=== PATIENT | female | born 1985 | race Caucasian/White ===

== ENCOUNTER 2021-01-19 09:17 | Outpatient (REF) | payer MEDICAID, SELFPAY | END 2021-01-19 09:18 | disposition home or self-care (01) | LOC: HO.LAB 09:17 | PROVIDERS: Visit Provider Internal Medicine | DX: Z20.822 Contact with and (suspected) exposure to COVID-19 (principal) | CPT/HCPCS: C9803; U0003; U0005 ==

== ENCOUNTER 2021-11-05 12:34 | Emergency (ER) | payer MEDICAID, SELFPAY ==
[2021-11-05 13:17] VITALS: BP 144/107; PULSE 82; RESP 18; TEMP 36.9; O2SAT 97; BMI 22.3
[2021-11-05] MEDS: Lidocaine HCl 1 % MPF 5 ML VIAL SUBCUT (15:14)
--- NOTE | 2021-11-05 16:05 | ED.SKABFB ---
HPI - Skin/Abscess/Foreign Bdy General Chief complaint: Skin/Abscess/Foreign Body Stated complaint: Cyst burst on head Time Seen by Provider: 11/05/21 14:52 Source: patient Mode of arrival: ambulatory History of Present Illness HPI narrative: 36-year-old female with past medical history of sebaceous cysts presenting to the ED complaining of cyst on frontal scalp which popped and started draining x a couple days. Admits has had cyst times many months. States area became painful and then noted the discharge. Denies erythema, fever, chills complaint: abscess/boil Onset (ago): day(s) Related Data Previous Rx's Medication Instructions Recorded cephalexin 500 mg capsule 500 mg PO QID 7 days #28 caps 11/05/21 Allergies Allergy/AdvReac Type Severity Reaction Status Date / Time morphine [MORPHINE] Allergy Unknown ELEVATED Verified 11/05/21 14:57 BP AND RASH bee pollen [bee stings] Allergy Anaphylaxis Verified 11/05/21 14:58 bee venom protein (honey bee) Allergy Anaphylaxis Verified 11/05/21 14:58 Review of Systems Review of Systems: Constitutional: No Weight loss, No Fever, No Chills ENT/Mouth: No Ear Pain, No Nasal Congestion, No Sinus Pain, No sore throat, No Rhinorrhea, No Swallowing Difficulty Cardiovascular: No Chest Pain, No SOB Respiratory: No Cough, No Sputum, No Wheezing Gastrointestinal: No Nausea, No Vomiting, No Diarrhea, No Constipation, No Abdominal pain Genitourinary: No Dysuria, No Urinary Frequency, No Flank Pain Musculoskeletal: No joint pain, No Myalgias, No Joint Swelling Skin: + Skin Lesions, No rash Neuro: No Weakness, No Numbness, No Paresthesias Yes all other systems are reviewed and are negative [facility] Past Medical History Attestation statement: The following information was validated with the patient. Social History Social History Advance Directives: No Advance Directives Information Provided: No Physical Exam Vital Signs: Vital Signs: Last Vital Signs Temp 98.5 F 11/05/21 13:17 Pulse 82 11/05/21 13:17 Resp 18 11/05/21 13:17 BP 135/87 11/05/21 16:21 Pulse Ox 97 11/05/21 13:17 O2 Del Method 11/05/21 13:17 BMI result Body Mass Index 22.3 Const: General: cooperative, healthy appearing and no acute distress Orientation/consciousness: patient oriented x3 Limitations: no limitations HEENT: Other: + sebaceous cyst to frontal scalp that is open and draining. No overlying erythema, no warmth, no induration Head: Yes normal to inspection and Yes atraumatic Ears: hearing grossly normal bilaterally General nose exam: Normal external nose present Face and sinus: Yes normal facial exam Eyes: General: appearance normal, both eyes and all related structures EOM: EOMs intact bilaterally Neck: Neck: Yes normal visual inspection and Yes no meningeal signs Resp: Effort & Inspection: normal respiratory effort and no respiratory distress Cardio: Rate: regular rate Heart sounds: S1 normal heart sound present and S2 normal heart sound present Skin: Rashes: no rashes Wounds: no wounds Neuro: General: patient oriented x3, tone normal and no meningeal signs Gait exam (Neuro): Normal gait present Extrem: General: Yes normal to inspection Course Course Course Narrative: Minimal amount of drainage expressed from cyst, unable to dislodge entire cyst wall. Minimal bleeding MDM - Skin/Abscess/Foreign Bdy MDM Narrative Medical decision making narrative: 36-year-old female with past medical history of sebaceous cysts presenting to the ED complaining of cyst on frontal scalp which popped and started draining x a couple days. On exam hypertensive, draining sebaceous cyst noted to frontal scalp is without overlying cellulitis or infection. Will I & D Differential Diagnosis Differential diagnosis: Likely abscess of skin or subcutaneous tissue Medical Records Attestation: I reviewed the patient's medical records. Lab Data Attestation: I reviewed the patient's lab results. Procedures Abscess I/D Site: scalp Local Anesthetic: lidocaine 1% Amount of anesthesia used (mL): 2 Technique: incised with blade Complications: pain Discharge Plan Discharge Clinical Impression: Sebaceous cyst Patient Disposition: Home, Self-Care Instructions: Cyst (ED) Additional Instructions: Your cyst was drained today in the emergency department, we were unable to get the whole cyst wall dislodged. If you need to follow-up with Dermatology. Please start taking Keflex which is an antibiotic If there is growing, turns red, has pus drainage or you have fever please return to the ED Prescriptions: New cephalexin 500 mg capsule 500 mg PO QID 7 Days Qty: 28 0RF Referrals: Deborah Lemus PA [Physician Expediter Clerk] - Rj Valente MD [Physician] - Isidro Grossman MD [Physician] - Interventions: ED Discharge Assessment Last Done: 11/05/21 16:28 Discharge Date/Time: 11/05/21 16:30
[2021-11-05 16:21] VITALS: BP 135/87
== END 2021-11-05 16:30 | disposition home or self-care (01) ==
PROVIDERS: Emergency Provider Emergency Medicine
DX: L02.811 Cutaneous abscess of head [any part, except face] (principal); Z79.899 Other long term (current) drug therapy
CPT/HCPCS: 10060; 99282; 99284

== ENCOUNTER 2022-05-26 09:28 | Emergency (ER) | payer MEDICAID, SELFPAY ==
--- NOTE | ~2022-05-26 | CT_ITS ---
Indication: Headache, eye bruising EXAMINATION: CT brain, CT facial bones. This CT examination was performed using dose optimization techniques as appropriate, variously including the following: *Automated exposure control *Adjustment of mA and/or kV according to patient size (this includes techniques or standardized protocols for targeted exams where dose is matched to indication/reason for exam; i.e. extremities or head) *Use of iterative reconstruction technique. Radiation dose [address] brain; There is no midline shift. There is no mass effect. There is no hemorrhage. The basal cisterns appear patent. The posterior fossa is grossly within normal limits. No extra-axial collection. Perez-white matter is fairly well-preserved. The ventricular system is within normal limits. Note is made of a soft tissue lesion I in the frontal region to the right of midline with associated minimal calcification. Etiology isn't determined. At this level on the left soft tissue induration of the subcutaneous fat of uncertain etiology. Another small partially calcified lesion adjacent to the left parietal calvarium. Review of the bone windows does not show evidence for fracture. CT facial bones; Note is made of sinus disease in the frontal sinuses, ethmoid sinuses, maxillary sinuses and minimal in the sphenoid sinuses. Mucous retention cyst or polyp likely associated with the right maxillary sinus measures 1.6 cm. Deviation of the nasal septum to the right. Lucency in the maxillary spine. A fracture would need to be considered here. CT/CT facial bones wo IV con IMPRESSION: Negative acute noncontrast CT of the brain. Some soft tissue lesions are noted. Correlation recommended clinically. Lucency involving the maxillary spine. Fracture would need to be considered here in the setting of trauma. Otherwise sinus disease is noted.
[2022-05-26 09:47] VITALS: BP 174/103; PULSE 75; RESP 18; TEMP 36.8; O2SAT 99; BMI 21.4
[2022-05-26 10:02] VITALS: BP 175/109; PULSE 74; RESP 16; TEMP 36.9; O2SAT 100
--- NOTE | 2022-05-26 10:19 | PC.NURSE ---
pt AOx3, pt denies trauma to eyes, ecchymosis area noted to bilateral eyes. pupils are PERRLA. pt is hypertensive, denies taking hypertensive medication. Reports 8/10 headache.
[2022-05-26 10:58] LABS: MANUAL DIFF FLAG NO
[2022-05-26] MEDS: ondansetron HCL 4 MG/2 ML VIAL IVPUSH (11:00)
[2022-05-26] MEDS: Acetaminophen 325 MG TABLET 975 MG PO (11:00)
[2022-05-26] MEDS: 0.9 % Sodium Chloride 1,000 ML 999 ML IVCONT (11:00)
[2022-05-26 11:05] LABS: Basophils Absolute Auto 0.1 X10*3/uL (0.0-0.2); Basophils Percent Auto 1.3 % (0-2); Eosinophils Absolute Auto 0.2 X10*3/uL (0.0-0.4); Eosinophils Percent Auto 3.1 % (0-4); Hematocrit 40.1 % (37.0-47.0); Imm Gran Abs Auto 0.02 X10*3/uL (0.00-0.03); Imm Gran Pct Auto 0.3 % (0.0-0.4); Lymphocytes Absolute Auto 1.8 X10*3/uL (1.2-4.9); Lymphocytes Percent Auto 28.8 % (20-40); Mean Corpuscular HGB Conc 34.9 g/dl (31.0-35.0); Mean Corpuscular Hemoglobin 31.3 pg (27.0-33.0); Mean Corpuscular Volume 89.7 fL (80.0-98.0); Mean Platelet Volume 10.8 fL (9.4-12.3); Monocytes Absolute Auto 0.4 X10*3/uL (0.1-1.2); Monocytes Percent Auto 6.4 % (2-11); Neutrophils Absolute Auto 3.8 x10*3/uL (2.0-8.3); Neutrophils Percent Auto 60.1 % (45-73); Platelet Count 316 X10*3/uL (160-400); Red Blood Count 4.47 X10*6/uL (4.20-5.50); Red Cell Distribution Width 13.1 % (11.0-16.0); White Blood Count 6.4 X10*3/uL (4.8-10.8)
--- NOTE | 2022-05-26 11:05 | PC.NURSE ---
pt AOx3, iv inserted. pt medicated per order. awaiting CT scan
[2022-05-26 11:06] LABS: INTERNATIONAL NORM RATIO 0.9 (0.9-1.1)
[2022-05-26 11:23] LABS: Alanine Aminotransferase 11 U/L (0-31); Albumin Level 4.3 g/dL (3.5-5.0); Alkaline Phosphatase 53 U/L (39-117); Anion Gap 13 (12-20); Aspartate Amino Transferase 14 U/L (5-31); Bilirubin Total 0.4 mg/dL (0.0-1.0); Blood Urea Nitrogen 8 mg/dL (9-16); C Reactive Protein < 0.10 mg/dL (< or = 0.50); Calcium 9.4 mg/dL (8.4-10.2); Carbon Dioxide 21 mmol/L (22-29); Chloride 112 mmol/L (96-108); Creatinine Clr Calc Pharmacy 101.3; Estimated Glomerular Filt Rate > 60; Glucose Random 84 mg/dL (60-115); Magnesium 2.2 mg/dL (1.6-2.6); Potassium 4.3 mmol/L (3.3-5.1); Sodium 142 mmol/L (135-145); Total Protein 6.8 g/dL (6.5-8.0)
[2022-05-26 11:45] LABS: Erythrocyte Sedimentation Rate 4 MM/HR (0-20)
--- NOTE | 2022-05-26 12:06 | ECG_ITS ---
Test Reason : CHEST PAIN Blood Pressure : / mmHG Vent. Rate : 072 BPM Atrial Rate : 072 BPM P-R Int : 138 ms QRS Dur : 076 ms QT Int : 406 ms P-R-T Axes : 042 079 072 degrees QTc Int : 444 ms Normal sinus rhythm Normal ECG When compared to the previous EKG of Nonspecific T waves in the precordial leads not present Referred By: Bree Harry Electronically Signed By:Guevara Martines
--- NOTE | 2022-05-26 12:11 | PC.NURSE ---
pt continues to c/o pain 7-12/02, pt also now complaining of left lower chest pain, provider notified, will perform an ekg.
--- NOTE | 2022-05-26 12:36 | PC.NURSE ---
ekg preformed, troponin drawn.
--- NOTE | 2022-05-26 12:47 | MHC.EDTECH ---
EKG done 1221
[2022-05-26 13:06] LABS: Troponin-I High Sensitivity < 3.5 ng/L (<3.5-17.0)
--- NOTE | 2022-05-26 13:37 | ED.HA ---
HPI - Headache General Chief Complaint: Skin/Abscess/Foreign Body Stated Complaint: Headache/Black eye no inj Time Seen by Provider: 05/26/22 09:59 Source: patient and family Mode of arrival: ambulatory Limitations: no limitations History of Present Illness HPI Narrative: 36-year-old female with a past medical history of headaches presenting to the ER with complaints of a persistent pressure-like headache to the frontal aspect of her head for the past few days. Also reports that she woke up yesterday with a bruise under her right eye. She reports that she did not have any trauma or head injury or any falls related to sustain this bruise. She also reports and anterior chest pain that she feels tight in sensation that has been intermittent over the past month. She denies being on any blood thinners. She denies any fevers, change in vision, vomiting, ear pain, nasal congestion/rhinorrhea, dizziness, CO2 exposure, recent tick bites, sore throat, trouble swallowing or breathing, chest pain or shortness of breath, rashes, nausea/vomiting/diarrhea, abdominal pain, rashes or any other symptoms complaints or concerns at this time. MD elicited complaint: headache Onset (ago): day(s) (For the past few days) Onset description: gradually Location: frontal Severity: mild Quality & Timing: constant, pressure and different than previous headaches Exacerbating factors: none Relieving factors: nothing Associated symptoms: other (See above) Treatments prior to arrival: none Related Data Previous Rx's Medication Instructions Recorded cephalexin 500 mg capsule 500 mg PO QID 7 days #28 caps 11/05/21 amoxicillin 875 mg-potassium 1 tab PO BID 7 days #14 tabs 05/26/22 clavulanate 125 mg tablet Allergies Allergy/AdvReac Type Severity Reaction Status Date / Time morphine [MORPHINE] Allergy Unknown ELEVATED Verified 05/26/22 10:08 BP AND RASH bee pollen [bee stings] Allergy Anaphylaxis Verified 05/26/22 10:08 bee venom protein (honey bee) Allergy Anaphylaxis Verified 05/26/22 10:08 Review of Systems Review of Systems: Constitutional : No changes in activity, No lethargy, No recent prior head injury, No agitation, No increased fussiness ENT/Mouth : No Ear Pain, No Nasal discharge/drainage Eyes: No Eye Pain, No Swelling, No Redness, No Foreign Body, No Vision Changes Cardiovascular : + Chest Pain, No SOB Respiratory : No Cough Gastrointestinal : No Nausea, No Vomiting, No abdominal Pain Genitourinary : No Dysuria, No Urinary Frequency, No Urinary Incontinence, No Urgency, No Flank Pain Musculoskeletal : No joint pain, No neck stiffness, No back pain/injury Skin : + ecchymosis to right periorbital area, No lacerations Neuro : No unsteady gait, No Paresthesias, No Loss of Consciousness, No altered mental status, No dizziness, + Headache Denies past medical history of HIV, recent trauma, coagulopathy, recent spinal/ epidural procedure, new medication, URI symptoms, close contacts with similar symptoms, tick bite, or known CO2 exposure. Yes all other systems are reviewed and are negative PMFSH Past Medical History Attestation statement: The following information was validated with the patient. Source: old records reviewed and nursing notes reviewed Social History Social History Alcohol intake: current Alcohol intake frequency: holidays/special occasions only Smoked in Last 30 Days: Yes Use of substances other than those prescribed or required for medical reasons: Yes Substance Use Type: Marijuana Substance Use Frequency: Occasionally Advance Directives: No Advance Directives Information Provided: Yes Patient : No Physical Exam Vital Signs: Vital Signs: Last Vital Signs Temp 98.5 F 05/26/22 10:02 Pulse 74 05/26/22 10:02 Resp 16 05/26/22 10:02 BP 175/109 H 05/26/22 10:02 Pulse Ox 100 05/26/22 10:02 O2 Del Method 05/26/22 10:02 BMI result Body Mass Index 21.4 Vital signs have been reviewed as normal and appeared to be correct. Blood pressure 174/103. Heart rate normal. Respiration rate normal. Temperature normal. Oxygen saturation normal. Appearance: Alert. Oriented X3. No acute distress. Head: Normal external exam. Normocephalic. Atraumatic. Able to rotate head bilaterally. No Louis signs or raccoon eyes noted. Eyes: PERRLA. EOMI. No nystagmus noted. Conjunctiva and sclera normal. Eyelids normal. Corneal reflex normal. To right periorbital lower aspect patient has ecchymosis with mild soft tissue swelling. No ecchymosis noted to the rest of the face or swelling. ENT: EAC normal. TM's Normal. No septal hematoma noted. No hemotympanum noted. Hearing normal. Pharynx normal. Uvula midline. tongue midline. Moist mucous membranes. No trismus noted. No drooling noted. No muffled voice noted. Neck: Normal inspection. Neck supple. FROM. No adenopathy. Thyroid Normal. No meningeal signs. No neck mass noted. CVS: Normal heart rate and rhythm. Heart sound normal. No murmurs noted. Pulses normal throughout. Respiratory: No respiratory distress. Painless inspiration. Breath sounds normal. No wheezes/rales/rhonchi noted. Chest nontender. No accessory muscle usage noted or decreased air movement noted. Back: Full range of motion noted. Skin: Skin warm and dry. Normal skin color. Normal skin turgor. No rashes/lesions/lacerations noted. Extremities: Extremities exhibit normal range of motion. Extremities nontender. Able to shrug shoulders bilaterally and keep up against resistance. Neuro: Oriented X 3. No motor deficit. No sensory deficit. Reflexes normal. Moving all extremities. No focal motor deficits. Cranial nerves II-XI intact bilaterally. Facial strength normal. Normal cognition. Speech normal. Gait normal. Strength 5/5 throughout. No pronator drift. No tremor noted. No fasciculations noted. Muscle tone normal throughout. No asterixis noted. [id number]-[id number] test normal. Heel to casas test normal. Tandem gait normal. Does not sway with eyes open. Romberg test negative. Rapid alternating movement upper extremity normal. Rapid alternating movement lower extremity normal. Hand drop from overhead-Mrs. face. No rigidity noted. NIHSS score 0. Course Course Course Narrative: - Patient afebrile, resting comfortably in no distress. Non-toxic appearing. Patient denies any recent trauma/injury to head. Neurological exam shows no deficits. BP WNL. Denies any changes in vision. Patient ambulates without difficulty. Given the history, and physical - most likely diagnosis: Migraine QUINTANILLA. Although due to patient reporting that this is longer than her usual headaches and her right eye bruising that is atraumatic will obtain CT scan of brain to evaluate for any acute processes. Will treat pain, and nausea. Will d/c with migraine medicaiton and advised to follow - up with PCP. Patient demonstrated good understanding of signs and symptoms to return to ED for further testing should sx worsen. gradual onset QUINTANILLA with nausea. Pt states classic of previous migraine HAs. SAH: unlikely given gradual onset and similar to previous episodes Intracranial bleed: unlikely given neg trauma, neg anticoagulation Meningitis: unlikely given pt afebrile, neg stiff neck, no immune compromise. Exam without signs of meningismus Temporal arteritis: Unlikely given Neg jaw claudication, no temporal tenderness or nodularity on exam. Cerebral venous thrombosis: unlikely given no h/o hypercoaguable state, no chronic head/neck infection. Reevaluation(s) Reevaluation #1: Labs obtained and all labs within normal limits. CT scan of brain negative for any acute processes. Although some soft tissue lesions are noted. She is also noted to have lucency involving the maxillary spine fracture would need to be considered in setting of trauma otherwise sinus disease noted. Although patient continues to deny any trauma. Therefore I printed out the results and handed to the patient explained to her that she will need to follow-up with her PCP regarding the lesions noted in her soft tissue areas that she would need further evaluation treatment regarding this with her PCP. Otherwise at this time patient can be discharged with instructions to follow-up with PCP due to she is also noted to have an elevated blood pressure although reports she has never been diagnosed with high blood pressure. Will not start her on blood pressure medication today as she reports she is also anxious and in pain therefore this could be related to that. I did give her Zofran along with Tylenol which provided some symptomatic relief for her headache. Will DC home with symptomatic treatment instructions return if any new or worsening symptoms. Patient understands agrees with this plan. Time: 13:48 Medications Administered Discontinued Medications Generic Name Dose Route Start Last Admin Trade Name Miguel PRN Reason Stop Dose Admin Acetaminophen 975 mg 05/26/22 10:39 05/26/22 11:00 Acetaminophen 325 Mg Tablet PO 05/26/22 10:40 975 mg ONCE ONE Administration Sodium Chloride 1,000 mls @ 999 mls/hr 05/26/22 10:45 05/26/22 12:35 Ns IVCONT 05/26/22 11:45 Infused .Q1H1M CHARISSA Infusion Ondansetron HCl 4 mg 05/26/22 10:39 05/26/22 11:00 Ondansetron Hcl 4 Mg/2 Ml Vial IVPUSH 05/26/22 10:40 4 mg ONCE ONE Administration Medical Decision Making Lab Data [facility] Lab Attestation statement: I reviewed the patient's lab results. 05/26/22 10:53 05/26/22 10:53 Labs: Lab Results 05/26/22 05/26/22 05/26/22 Range/Units 10:53 10:53 10:53 WBC 6.4 (4.8-10.8) X10*3/uL RBC 4.47 (4.20-5.50) X10*6/uL Hgb 14.0 (12.0-16.0) g/dl Hct 40.1 (37.0-47.0) % MCV 89.7 (80.0-98.0) fL MCH 31.3 (27.0-33.0) pg MCHC 34.9 (31.0-35.0) g/dl RDW 13.1 (11.0-16.0) % Plt Count 316 (160-400) X10*3/uL MPV 10.8 (9.4-12.3) fL Immature Gran % (Auto) 0.3 (0.0-0.4) % Neut % (Auto) 60.1 (45-73) % Lymph % (Auto) 28.8 (20-40) % Rooks % (Auto) 6.4 (2-11) % Eos % (Auto) 3.1 (0-4) % Baso % (Auto) 1.3 (0-2) % Lymph # (Auto) 1.8 (1.2-4.9) X10*3/uL Rooks # (Auto) 0.4 (0.1-1.2) X10*3/uL Eos # (Auto) 0.2 (0.0-0.4) X10*3/uL Baso # (Auto) 0.1 (0.0-0.2) X10*3/uL Abs Immat Gran (auto) 0.02 (0.00-0.03) X10*3/uL Absolute Neuts (auto) 3.8 (2.0-8.3) x10*3/uL Absolute Nucleated RBC 0.000 (0.0-0.012) X10*3/uL Nucleated RBC % (auto) 0.0 (0.0-0.2) /100WBC ESR 4 (0-20) MM/HR PT 10.0 (10.0-13.1) SEC INR 0.9 (0.9-1.1) Sodium (135-145) mmol/L Potassium (3.3-5.1) mmol/L Chloride (96-108) mmol/L Carbon Dioxide (22-29) mmol/L Anion Gap (12-20) BUN (9-16) mg/dL Creatinine (0.5-1.4) mg/dL Estim Creat Clear Calc Estimated GFR Random Glucose (60-115) mg/dL Calcium (8.4-10.2) mg/dL Magnesium (1.6-2.6) mg/dL Total Bilirubin (0.0-1.0) mg/dL AST (5-31) U/L ALT (0-31) U/L Alkaline Phosphatase (39-117) U/L Troponin I High Sens (<3.5-17.0) ng/L C-Reactive Protein (< or = 0.50) mg/dL Total Protein (6.5-8.0) g/dL Albumin (3.5-5.0) g/dL 05/26/22 05/26/22 Range/Units 10:53 12:35 WBC (4.8-10.8) X10*3/uL RBC (4.20-5.50) X10*6/uL Hgb (12.0-16.0) g/dl Hct (37.0-47.0) % MCV (80.0-98.0) fL MCH (27.0-33.0) pg MCHC (31.0-35.0) g/dl RDW (11.0-16.0) % Plt Count (160-400) X10*3/uL MPV (9.4-12.3) fL Immature Gran % (Auto) (0.0-0.4) % Neut % (Auto) (45-73) % Lymph % (Auto) (20-40) % Rooks % (Auto) (2-11) % Eos % (Auto) (0-4) % Baso % (Auto) (0-2) % Lymph # (Auto) (1.2-4.9) X10*3/uL Rooks # (Auto) (0.1-1.2) X10*3/uL Eos # (Auto) (0.0-0.4) X10*3/uL Baso # (Auto) (0.0-0.2) X10*3/uL Abs Immat Gran (auto) (0.00-0.03) X10*3/uL Absolute Neuts (auto) (2.0-8.3) x10*3/uL Absolute Nucleated RBC (0.0-0.012) X10*3/uL Nucleated RBC % (auto) (0.0-0.2) /100WBC ESR (0-20) MM/HR PT (10.0-13.1) SEC INR (0.9-1.1) Sodium 142 (135-145) mmol/L Potassium 4.3 (3.3-5.1) mmol/L Chloride 112 H (96-108) mmol/L Carbon Dioxide 21 L (22-29) mmol/L Anion Gap 13 (12-20) BUN 8 L (9-16) mg/dL Creatinine 0.65 (0.5-1.4) mg/dL Estim Creat Clear Calc 101.3 Estimated GFR > 60 Random Glucose 84 (60-115) mg/dL Calcium 9.4 (8.4-10.2) mg/dL Magnesium 2.2 (1.6-2.6) mg/dL Total Bilirubin 0.4 (0.0-1.0) mg/dL AST 14 (5-31) U/L ALT 11 (0-31) U/L Alkaline Phosphatase 53 (39-117) U/L Troponin I High Sens < 3.5 (<3.5-17.0) ng/L C-Reactive Protein < 0.10 (< or = 0.50) mg/dL Total Protein 6.8 (6.5-8.0) g/dL Albumin 4.3 (3.5-5.0) g/dL Independent Interpretation I performed an independent interpretation of an: EKG (Normal sinus rhythm with ventricular rate of 72 with a normal MO interval normal QRS duration normal QT/QTC interval. No acute ischemic change are noted. Similar compared to prior EKG.) and CT Scan Interpretation: CT brain; There is no midline shift. There is no mass effect. There is no hemorrhage. The basal cisterns appear patent. The posterior fossa is grossly within normal limits. No extra-axial collection. Perez-white matter is fairly well-preserved. The ventricular system is within normal limits. Note is made of a soft tissue lesion I in the frontal region to the right of midline with associated minimal calcification. Etiology isn't determined. At this level on the left soft tissue induration of the subcutaneous fat of uncertain etiology. Another small partially calcified lesion adjacent to the left parietal calvarium. Review of the bone windows does not show evidence for fracture. CT facial bones; Note is made of sinus disease in the frontal sinuses, ethmoid sinuses, maxillary sinuses and minimal in the sphenoid sinuses. Mucous retention cyst or polyp likely associated with the right maxillary sinus measures 1.6 cm. Deviation of the nasal septum to the right. Lucency in the maxillary spine. A fracture would need to be considered here. CT/CT head/brain wo IV con IMPRESSION: Negative acute noncontrast CT of the brain. Some soft tissue lesions are noted. Correlation recommended clinically. ? Lucency involving the maxillary spine. Fracture would need to be considered here in the setting of trauma. ? Otherwise sinus disease is noted. Radiology Impression Discussion of test interpretation with radiology: I have reviewed the radiologist's reading. Independent Historian Clinical information obtained from an independent historian. History obtained from or confirmed by: Other (Daughter at bedside) Discharge Plan Discharge Clinical Impression: Abnormal brain CT, Periorbital ecchymosis of right eye, Generalized headaches, High blood pressure Patient Disposition: Home, Self-Care Instructions: How to Take a Blood Pressure (ED), Hypertension (ED), General Headache (ED) Additional Instructions: You were noted to have a high blood pressure here in the emergency department. You should monitor your blood pressure at least 3 times a week in the morning and write it down on a piece of paper and bring this to her primary care provider so next time you go they can evaluate if you need blood pressure medication. Your CT scan showed some soft tissue lesions that the etiology are indeterminate. Therefore your primary care provider should do further evaluation treatment regarding this. Return if any new or worsening symptoms. Follow up with her doctor this week. Prescriptions: New amoxicillin-pot clavulanate 875-125 mg tablet 1 tab PO BID 7 Days Qty: 14 0RF No Action cephalexin 500 mg capsule 500 mg PO QID 7 Days Qty: 28 0RF Referrals: Physician,Unknown J [Primary Care Provider] - (your pcp within 1 week )
== END 2022-05-26 13:55 | disposition home or self-care (01) ==
PROVIDERS: Physician Assistant Medical; Emergency Provider Student in an Organized Health Care Education/Training Program
DX: S00.11XA Contusion of right eyelid and periocular area, initial encounter (principal); R51.9 Headache, unspecified; M54.50 Low back pain, unspecified; I10 Essential (primary) hypertension; X58.XXXA Exposure to other specified factors, initial encounter; Y93.9 Activity, unspecified; Y92.9 Unspecified place or not applicable; Y99.9 Unspecified external cause status; Z79.899 Other long term (current) drug therapy
CPT/HCPCS: 36415; 70450; 70486; 80053; 83735; 84484; 85025; 85610; 85652; 86140; 93005; 96361; 96374; 99284; 99285; J2405

== ENCOUNTER 2023-01-05 12:44 | Emergency (ER) | payer OTHER, SELFPAY ==
[2023-01-05 13:10] VITALS: BP 136/93; PULSE 78; RESP 19; TEMP 36.6; O2SAT 98; BMI 25.3
--- NOTE | 2023-01-05 13:15 | ED.GENADULT ---
HPI - General Adult General Chief complaint: Ear Problems Stated complaint: Bleeding Out Of L Ear Time Seen by Provider: 01/05/23 13:14 Source: patient, RN notes reviewed and old records reviewed Mode of arrival: ambulatory Limitations: no limitations History of Present Illness HPI narrative: 37-year-old female presents for evaluation of bleeding from her left ear She reports yesterday she felt some pressure in her left ear and minor discomfort She denies taking anything in the left ear but today had some bleeding on the left ear She called her doctor who referred to the ER Denies any fevers, chills Related Data Previous Rx's Medication Instructions Recorded cephalexin 500 mg capsule 500 mg PO QID 7 days #28 caps 11/05/21 amoxicillin 875 mg-potassium 1 tab PO BID 7 days #14 tabs 05/26/22 clavulanate 125 mg tablet amoxicillin 500 mg tablet 500 mg PO TID #21 tabs 01/05/23 Allergies Allergy/AdvReac Type Severity Reaction Status Date / Time morphine [MORPHINE] Allergy Unknown ELEVATED Verified 01/05/23 13:10 BP AND RASH bee pollen [bee stings] Allergy Anaphylaxis Verified 01/05/23 13:10 bee venom protein (honey bee) Allergy Anaphylaxis Verified 01/05/23 13:10 Review of Systems Constitutional: Constitutional: Denies chills and Denies fever(s) ENT: Reports ear discharge (Bloody) and Reports otalgia PMFSH Social History Social History Alcohol intake: current Alcohol intake frequency: holidays/special occasions only Substance Use Type: Marijuana Physical Exam ED Vital Signs: Vital Signs - 24 hr 01/05/23 13:10 Temperature 98 F Pulse Rate 78 Respiratory Rate 19 Blood Pressure 136/93 H Pulse Oximetry 98 Oxygen Delivery Method Room Air BMI result Body Mass Index 25.3 Const General: healthy appearing, comfortable, no acute distress, alert and awake Nutritional Appearance: well nourished Orientation/consciousness: patient oriented x3 HENMT Other: No left pre or postauricular edema. Head: Yes normocephalic and Yes atraumatic Ears: TM normal on the right and left TM abnormal (Appears to be a small TM perforation at the 5 to 6 o'clock position. ) Eyes Eyelids: Yes eyelids normal Conjunctivae: conjunctivae normal Sclerae: sclerae normal Corneas: corneas normal Pupils: Equal, round and reactive pupils present EOM: EOMs intact bilaterally Neck Neck: Yes full ROM Resp Effort & Inspection: normal respiratory effort, able to speak in complete sentences and not labored Skin General skin exam: elasticity normal Neuro General: patient oriented x3 Cranial nerves: Yes Equal, round and reactive pupils present and Yes Bilaterally intact EOM present Cognition (Neuro): normal cognition Extrem Other: Moving all extremities well without any obvious deformities Medical Decision Making Medical Decision Making MDM Narrative: Patient appears to have a minor tympanic membrane rupture. Patient will be started on amoxicillin for prophylaxis, as it here does not appear acutely infected. She will be referred to outpatient ENT for follow-up. She is encouraged not to stick anything in her ear Differential Diagnosis Differential Diagnoses: The differential diagnosis associated with the presentation includes TM rupture Otitis media Otitis externa Mastoiditis Discharge Plan Discharge Clinical Impression: Tympanic membrane perforation Patient Disposition: Home, Self-Care Instructions: Ruptured Eardrum (ED) Additional Instructions: It appears you have a small perforation to the bottom of your eardrum. Take amoxicillin 3 times daily for the next 7 days Follow-up with your nose and throat specialist, you may call Dr. Luke Do not stick anything in your ear including Q-tips Try to keep water out of the ear as well. Prescriptions: New amoxicillin 500 mg tablet 500 mg PO TID Qty: 21 0RF No Action cephalexin 500 mg capsule 500 mg PO QID 7 Days Qty: 28 0RF amoxicillin-pot clavulanate 875-125 mg tablet 1 tab PO BID 7 Days Qty: 14 0RF Referrals: Shawn Luke [Physician] - (left tm rupture)
== END 2023-01-05 13:21 | disposition home or self-care (01) ==
PROVIDERS: Emergency Provider Emergency Medicine Emergency Medical Services
DX: H72.92 Unspecified perforation of tympanic membrane, left ear (principal); Z79.899 Other long term (current) drug therapy
CPT/HCPCS: 99282; 99283

== ENCOUNTER 2023-03-10 09:25 | Emergency (ER) | payer OTHER, SELFPAY ==
[2023-03-10 09:43] VITALS: BP 131/82; PULSE 76; RESP 18; TEMP 36.6; O2SAT 98; BMI 24.6
--- NOTE | 2023-03-10 09:50 | ED_ITS ---
HPI - General Adult General Chief complaint: General Medical Stated complaint: Migraine Cough Time Seen by Provider: 03/10/23 09:36 Source: patient Mode of arrival: ambulatory Limitations: no limitations History of Present Illness HPI narrative: 37 yo female otherwise healthy s/p 1 COVID shot - exposed at work about 10 days ago now here with 3 days of sinus symptoms, headaches, fevers, chills, not feeling well and sore throat. Has taken negative covid tests but does not feel well, no CP/SOB. MD complaint: viral syndrome Onset (ago): day(s) (3) Location: head, face and mouth Radiation: non-radiation Severity: moderate Quality: aching Pain Consistency: intermittent Relieving factors: medication Exacerbating factors: none Associated symptoms: headaches and loss of appetite Treatments prior to arrival: NSAID Related Data Previous Rx's Medication Instructions Recorded cephalexin 500 mg capsule 500 mg PO QID 7 days #28 caps 11/05/21 amoxicillin 875 mg-potassium 1 tab PO BID 7 days #14 tabs 05/26/22 clavulanate 125 mg tablet amoxicillin 500 mg tablet 500 mg PO TID #21 tabs 01/05/23 amoxicillin 875 mg-potassium 1 tab PO BID #14 tabs 03/10/23 clavulanate 125 mg tablet Allergies Allergy/AdvReac Type Severity Reaction Status Date / Time morphine [MORPHINE] Allergy Unknown ELEVATED Verified 01/05/23 13:10 BP AND RASH bee pollen [bee stings] Allergy Anaphylaxis Verified 01/05/23 13:10 bee venom protein (honey bee) Allergy Anaphylaxis Verified 01/05/23 13:10 Review of Systems Review of Systems: Constitutional : No Fever, pos Chills, pos Fatigue ENT/Mouth : pos sore throat, pos Rhinorrhea Eyes: No Eye Pain, No Swelling, No Redness Cardiovascular : No Chest Pain, No SOB, No Dyspnea on Exertion Respiratory : pos Cough, No Sputum Gastrointestinal : No Nausea, No Vomiting, No Diarrhea, No abdominal Pain Genitourinary : No Dysuria, No Urinary Frequency, No Hematuria, Musculoskeletal : No joint pain, No Myalgias, No Joint Swelling Skin : No Skin Lesions, No rash Neuro : No Weakness, No Numbness, No Dizziness, positive Headache Psych : No Anxiety/Panic, No Depression Heme/Lymph: No Bruising, No Bleeding,No Lymphadenopathy Endocrine : No Polyuria, No Polydipsia All other systems reviewed and are negative [facility] Past Medical History Attestation statement: The following information was validated with the patient. Medical History No pertinent past medical history Social History Social History (Updated 03/10/23 @ 09:53 by Crystal Malone DO) Alcohol intake: current Alcohol intake frequency: holidays/special occasions only Patient Tobacco Use Status: Current everyday Tobacco user Substance Use Type: Marijuana Advance Directives: No Patient : No Physical Exam ED Vital Signs: Vital Signs - 24 hr 03/10/23 09:43 Temperature 98 F Pulse Rate 76 Respiratory Rate 18 Blood Pressure 131/82 Pulse Oximetry 98 Oxygen Delivery Method Room Air BMI result Body Mass Index 24.6 Appearance: Alert. Oriented X3. No acute distress. Eyes: Pupils equal, round and reactive to light. ENT: Pharynx mild erythema no exudates normal uvula, bilateral TMs normal, slight clear effusion L TM Neck: Normal inspection. Neck supple. CVS: Normal heart rate and rhythm. Pulses normal. Respiratory: No respiratory distress. Breath sounds normal. Abdomen: Soft and nontender. Skin: Skin warm and dry. Normal skin color. Normal skin turgor. Extremities: No lower extremity edema. No calf ttp Neuro: Oriented X 3. No motor deficit. No sensory deficit. Course Course Course Narrative: suspect sinusitis based off symptoms Medications Administered Discontinued Medications Generic Name Dose Route Start Last Admin Trade Name Freq PRN Reason Stop Dose Admin Acetaminophen 975 mg 03/10/23 09:48 03/10/23 09:54 Acetaminophen 325 Mg Tablet PO 03/10/23 09:49 975 mg ONCE ONE Administration Medical Decision Making Medical Decision Making [facility] Narrative: 37 yo female with COVID exposure now with viral symptoms - she is not toxic, no CP/SOB she has normal VS at this time has a headache but no meningeal signs and normal neuro exam will obtain strep and PCR viral panel, offer tylenol. Differential Diagnosis Differential Diagnoses: The differential diagnosis associated with the presentation includes strep throat, flu, covid, sinusitis Admission/Observation Consideration of admission/observation: Escalation of care including admission/observation considered not toxic, stable for DC Lab Data [facility] Lab Attestation statement: I reviewed the patient's lab results. Labs: Lab Results 03/10/23 Range/Units 09:56 Influenza Type A (PCR) NEGATIVE (Negative) Influenza Type B (PCR) NEGATIVE (Negative) RSV RNA Qual (PCR) NEGATIVE (Negative) SARS-CoV-2 RNA (RT-PCR) NEGATIVE (Negative) S. pyogenes GrpA RODRIGO Negative (Negative) Prescription Management I considered prescription management with: Antibiotic Discharge Plan Discharge Clinical Impression: Sinusitis Qualifiers: Sinusitis location: unspecified location Chronicity: acute Recurrence: non- recurrent Qualified Code(s): J01.90 - Acute sinusitis, unspecified Patient Disposition: Home, Self-Care Instructions: Sinusitis (ED) Additional Instructions: return for worsening pain, fevers, confusion or any other concerns Take a probiotic while you are on antibiotics and for at least one week after the antibiotics are finished - this can help protect your GI system from diarrhea and other issues. You can get probiotics by drinking kefir, eating yogurt or culturelle or another pill form of probiotic. Do not take it at the same time as you take the antibiotic.?More than 6 to 8 loose stools a day is not normal seek care if this happens On amoxicillin-clavulanate, softer bowel movements are to be expected. Call your provider if you move your bowels more than 4 times a day, your bowel movements are almost all liquid, or you get a rash.? Prescriptions: New amoxicillin-pot clavulanate 875-125 mg tablet 1 tab PO BID Qty: 14 0RF No Action cephalexin 500 mg capsule 500 mg PO QID 7 Days Qty: 28 0RF amoxicillin-pot clavulanate 875-125 mg tablet 1 tab PO BID 7 Days Qty: 14 0RF amoxicillin 500 mg tablet 500 mg PO TID Qty: 21 0RF Stand Alone Forms: Work/School Release
[2023-03-10] MEDS: Acetaminophen 325 MG TABLET 975 MG PO (09:54)
[2023-03-10 10:13] LABS: IDNOW Serial# 08D9AD1C; Strep A Nucleic Acid Negative (Negative)
[2023-03-10 10:51] LABS: Influenza A PCR NEGATIVE (Negative); Influenza B PCR NEGATIVE (Negative); Resp Syncy Virus RNA Qual PCR NEGATIVE (Negative); SARS COV2 PCR INHOUSE NEGATIVE (Negative)
[2023-03-10 11:25] VITALS: BP 125/81; PULSE 72; RESP 16
== END 2023-03-10 11:24 | disposition home or self-care (01) ==
PROVIDERS: Emergency Provider Emergency Medicine
DX: J01.90 Acute sinusitis, unspecified (principal); G43.909 Migraine, unspecified, not intractable, without status migrainosus; R05.9 Cough, unspecified; F17.200 Nicotine dependence, unspecified, uncomplicated; Z20.822 Contact with and (suspected) exposure to COVID-19; Z20.828 Contact with and (suspected) exposure to other viral communicable diseases; Z71.6 Tobacco abuse counseling
CPT/HCPCS: 0241U; 87651; 99283; 99284

== ENCOUNTER 2023-06-29 08:01 | Emergency (ER) | payer OTHER, SELFPAY ==
[2023-06-29 08:11] VITALS: BP 137/103; PULSE 79; RESP 20; TEMP 37.1; O2SAT 98; BMI 24.2
--- NOTE | 2023-06-29 10:08 | ED.GENADULT ---
HPI - General Adult General Chief complaint: Wound/Laceration Stated complaint: Laceration right arm Time Seen by Provider: 06/29/23 10:07 Source: patient Mode of arrival: ambulatory Limitations: no limitations History of Present Illness HPI narrative: Patient is a 38 year old assigned female at with no reported medical history presenting to the emergency department today with a right forearm dog bite. Patient states that last night her 2 dogs got into a fight and when she went to break it up, she got bit on the right forearm. Patient states that her dogs are up to date on all vaccinations and she is up to date on tetanus. Patient denies any dizziness, lightheadedness, abdominal pain, nausea, vomiting, fever, chills, blurry vision, double vision, loss of vision, chest pain, difficulty breathing, shortness of breath, back pain, night sweats, pain with urination, increased urinary frequency, increased urinary urgency, blood in her urine or stool, syncope or a near syncopal episode, bowel incontinence, bladder incontinence, bowel retention, bladder retention, or any other complaints at this time. Onset (ago): day(s) (1) Location: right and upper extremity Radiation: non-radiation Severity: mild Severity scale (1-10): 4 Quality: aching and dull Pain Consistency: constant Relieving factors: none Exacerbating factors: none Associated symptoms: denies other symptoms Treatments prior to arrival: none Related Data Previous Rx's Medication Instructions Recorded cephalexin 500 mg capsule 500 mg PO QID 7 days #28 caps 11/05/21 amoxicillin 875 mg-potassium 1 tab PO BID 7 days #14 tabs 05/26/22 clavulanate 125 mg tablet amoxicillin 500 mg tablet 500 mg PO TID #21 tabs 01/05/23 amoxicillin 875 mg-potassium 1 tab PO BID #14 tabs 03/10/23 clavulanate 125 mg tablet amoxicillin 875 mg-potassium 1 tab PO BID 10 days #20 tabs 06/29/23 clavulanate 125 mg tablet Allergies Allergy/AdvReac Type Severity Reaction Status Date / Time morphine [MORPHINE] Allergy Unknown ELEVATED Verified 06/29/23 08:17 BP AND RASH bee pollen [bee stings] Allergy Anaphylaxis Verified 06/29/23 08:17 bee venom protein (honey bee) Allergy Anaphylaxis Verified 06/29/23 08:17 Review of Systems Constitutional: Constitutional: Reports no additional constitutional complaints, Denies chills, Denies fever(s) and Denies night sweats Eyes: Eyes: Reports no additional eye complaints, Denies blurry vision, Denies change in vision, Denies diplopia, Denies eye discharge, Denies loss of vision and Denies eye pain ENT: Denies dizziness Cardiovascular: Cardiovascular: Reports no additional cardiovascular complaints, Denies chest pain, Denies lightheadedness, Denies Loss of Consciousness and Denies dyspnea Respiratory: Respiratory: Reports no additional respiratory complaints and Denies dyspnea Gastrointestinal: Gastrointestinal: Reports no additional gastrointestinal complaints, Denies abdominal pain, Denies melena, Denies hematochezia, Denies change in bowel habits and Denies change in stool character Genitourinary: Genitourinary: Denies hematuria, Denies urinary frequency, Denies dysuria, Denies urinary incontinence, Denies urinary hesitancy and Denies urinary urgency Musculoskeletal: Musculoskeletal: Reports no additional musculoskeletal complaints, Denies numbness and Denies tingling Comments: dog bite to right forearm Neurologic: Denies dizziness, Denies loss of vision, Denies numbness and Denies tingling Psychiatric: Psychiatric: Reports no additional psychiatric complaints Endocrine: Endocrine: Reports no additional endocrine complaints Hematologic/Lymphatic: Hematologic/Lymphatic: Reports no additional hematologic/lymphatic complaints Allergic/Immunologic: Allergic/Immunologic: Reports no additional allergic/immunologic complaints PMFSH Past Medical History Attestation statement: The following information was validated with the patient. Source: old records reviewed and nursing notes reviewed Medical History No pertinent past medical history Social History Social History Alcohol intake: current Alcohol intake frequency: holidays/special occasions only Patient Tobacco Use Status: Current everyday Tobacco user Substance Use Type: Marijuana Advance Directives: No Physical Exam ED Vital Signs: Vital Signs - 24 hr 06/29/23 08:11 Temperature 98.8 F Pulse Rate 79 Respiratory Rate 20 Blood Pressure 137/103 H Pulse Oximetry 98 Oxygen Delivery Method Room Air BMI result Body Mass Index 24.2 Const General: cooperative, no acute distress, alert and awake Nutritional Appearance: well nourished Orientation/consciousness: patient oriented x3 Limitations: no limitations HENMT Head: Yes normal to inspection and Yes atraumatic Ears: hearing grossly normal bilaterally and external ears normal General nose exam: Normal external nose present, no nasal discharge noted and no epistaxis Face and sinus: Yes normal facial exam, No abrasion and No laceration Mouth: Normal oral and palatal mucosa present, no drooling and no muffled voice Eyes General: appearance normal, both eyes and all related structures Periorbital: periorbital findings normal Eyelids: Yes eyelids normal Conjunctivae: conjunctivae normal Pupils: Equal, round and reactive pupils present EOM: EOMs intact bilaterally Neck Neck: Yes normal visual inspection, Yes full ROM and Yes no lymphadenopathy Chest Chest palpation & inspection: normal inspection of the chest Resp Effort & Inspection: normal respiratory effort and able to speak in complete sentences GI Inspection: Yes normal to inspection Neuro General: patient oriented x3 and moves all extremities Cranial nerves: Yes Equal, round and reactive pupils present Cognition (Neuro): normal cognition Motor exam (neuro): 5/5 motor strength present throughout Sensory Exam: Normal double simultaneous stimulation for sensation Coordination: [id number] test normal Extrem General: Yes full ROM and Yes capillary refill normal Elbow/forearm/wrist images: 1. small puncture wound, no active bleeding, no gaping Psych Appearance: grossly normal Mental Status: mental status grossly normal Affect: normal affect Attitude: cooperative Thought process: Normal thought process present Thought content: Normal thought content present Insight: Good insight present (Psych) Medical Decision Making Medical Decision Making MDM Narrative: Patient is a 38 year old assigned female at with a history presenting to the emergency department today with right forearm pain after a dog bite. Patient's physical exam was as noted in the physical exam portion of this note. I explained my physical exam findings to the patient. I answered all questions asked by the patient. I stressed the importance of the patient taking her medication as prescribed. I stressed the importance of the patient following up with her primary care provider. I stressed the importance of the patient returning to the emergency department immediately if her symptoms were to worsen or if she were to develop any dizziness, shortness of breath, difficulty breathing, chest pain, blurry vision, loss of vision, nausea, vomiting, abdominal pain, fever, chills, back pain, or any other complaints. Patient verbalized agreement and understanding with this treatment plan and discharge. Differential Diagnosis Differential Diagnoses: The differential diagnosis associated with the presentation includes Right forearm dog bite Dog bite Avulsion Puncture wound Admission/Observation Consideration of admission/observation: Escalation of care including admission/observation considered Patient would have been admitted to the hospital had her clinical presentation warranted hospital admission. Prescription Management I considered prescription management with: Antibiotic (patient prescribed a prophlyactic antibiotic for dog bite) Discharge Plan Discharge Clinical Impression: Dog bite Patient Disposition: Home, Self-Care Instructions: Animal Bite (ED) Additional Instructions: Take your medication as prescribed. Follow up with your primary care provider. Return to the emergency department immediately if your symptoms worsen or if you develop any dizziness, shortness of breath, difficulty breathing, chest pain, blurry vision, loss of vision, nausea, vomiting, abdominal pain, fever, chills, back pain, or any other complaints. Prescriptions: New amoxicillin-pot clavulanate 875-125 mg tablet 1 tab PO BID 10 Days Qty: 20 0RF No Action cephalexin 500 mg capsule 500 mg PO QID 7 Days Qty: 28 0RF amoxicillin-pot clavulanate 875-125 mg tablet 1 tab PO BID 7 Days Qty: 14 0RF amoxicillin-pot clavulanate 875-125 mg tablet 1 tab PO BID Qty: 14 0RF amoxicillin 500 mg tablet 500 mg PO TID Qty: 21 0RF Referrals: [facility] [facility] [Provider Group] (Call to establish and follow up with a primary care provider. If you already have a primary care provider, please follow up with them.) [facility] Primary [facility], [place] [Provider Group] (Call to establish and follow up with a primary care provider. If you already have a primary care provider, please follow up with them.) [facility] Primary [facility],[place] [Provider Group] (Call to establish and follow up with a primary care provider. If you already have a primary care provider, please follow up with them.) Stand Alone Forms: Work/School Release Interventions: ED Discharge Assessment Last Done: 06/29/23 10:24 Discharge Date/Time: 06/29/23 10:25 Print Language: Tajik
== END 2023-06-29 10:25 | disposition home or self-care (01) ==
PROVIDERS: Emergency Provider Emergency Medicine
DX: S50.871A Other superficial bite of right forearm, initial encounter (principal); W54.0XXA Bitten by dog, initial encounter; Y93.9 Activity, unspecified; Y92.9 Unspecified place or not applicable; Y99.9 Unspecified external cause status
CPT/HCPCS: 99282; 99283

== ENCOUNTER → 2024-09-26 11:30 | Outpatient (BNVA) | payer OTHER, SELFPAY | PROVIDERS: Visit Provider Physician Assistant | DX: S86.111A Strain of other muscle(s) and tendon(s) of posterior muscle group at lower leg level, right leg, initial encounter (principal); X50.3XXA Overexertion from repetitive movements, initial encounter | CPT/HCPCS: 99204 ==

== ENCOUNTER → 2024-10-03 09:02 | Outpatient (BNVA) | payer OTHER, SELFPAY | PROVIDERS: Visit Provider Physician Assistant | DX: S86.111A Strain of other muscle(s) and tendon(s) of posterior muscle group at lower leg level, right leg, initial encounter (principal); X50.3XXA Overexertion from repetitive movements, initial encounter | CPT/HCPCS: 99213 ==